=== PATIENT | male | born 1985 | race Asian ===

== ENCOUNTER 2019-11-25 19:56 | Emergency (ER) | payer OTHER ==
[~2019-11-25] VITALS: Ht 180.3 cm; Wt 85.2 kg
--- NOTE | 2019-11-25 20:47 | REPVR ---
PROCEDURE INFORMATION: Exam: CT Abdomen And Pelvis Without Contrast Exam date and time: 11/25/2019 8:26 PM Age: 34 years old Clinical indication: Pain; Other: Back; Additional info: Hematuria/back pain TECHNIQUE: Imaging protocol: Computed tomography of the abdomen and pelvis without contrast. Radiation optimization: All CT scans at this facility use at least one of these dose optimization techniques: automated exposure control; mA and/or kV adjustment per patient size (includes targeted exams where dose is matched to clinical indication); or iterative reconstruction. COMPARISON: No relevant prior studies available. FINDINGS: Liver: Normal. No mass. Gallbladder and bile ducts: The gallbladder is incompletely distended. This is most likely related to incomplete fasting. Clinical correlation to exclude gallbladder pathology suggested. Pancreas: Normal. No ductal dilation. Spleen: Normal. No splenomegaly. Adrenals: Normal. No mass. Kidneys and ureters: Linear 4 mm calcific density demonstrated in the region of the distal left ureter although the left ureter is not clearly visualized on this unenhanced evaluation. If there is a strong index of suspicion for a distal ureteral calculus on the left further evaluation with CT urography suggested. Notably, there is no significant proximal hydroureteronephrosis. Stomach and bowel: There is increased feces throughout the colon consistent with constipation. Mixed air in secretions demonstrated in nondilated small bowel. Findings suggestive of small bowel stasis. Duodenal hernia. Appendix: No evidence of appendicitis. Intraperitoneal space: Unremarkable. No free air. No significant fluid collection. Vasculature: Unremarkable. No abdominal aortic aneurysm. Lymph nodes: Unremarkable. No enlarged lymph nodes. Bladder: Unremarkable as visualized. Reproductive: The prostate gland demonstrates mild hyperplasia. Bones/joints: Unremarkable. No acute fracture. Soft tissues: Unremarkable. IMPRESSION: 1. The gallbladder is incompletely distended. This is most likely related to incomplete fasting. Clinical correlation to exclude gallbladder pathology suggested. 2. Mild prostatic hyperplasia. 3. Linear 4 mm calcific density demonstrated in the region of the distal left ureter although the left ureter is not clearly visualized on this unenhanced evaluation. If there is a strong index of suspicion for a distal ureteral calculus on the left further evaluation with CT urography suggested. Notably, there is no significant proximal hydroureteronephrosis. 4. There is increased feces throughout the colon consistent with constipation. 5. Mixed air in secretions demonstrated in nondilated small bowel. Findings suggestive of small bowel stasis. Electronically signed by: Shekhar Claudio On 11/25/2019 20:46:12 PM
[2019-11-25 20:53] LABS: BASO % 0.2 % (0.0-1.0); EOS % 0.1 % (0.0-3.0); HEMATOCRIT 43.3 % (42.0-52.0); HEMOGLOBIN 13.9 g/dl (13.5-17.5); LYMPH # 2.2 10^3/uL (1.5-5.0); LYMPH % 14.1 % (24.0-44.0); MEAN CORPUSCULAR HEMOGLOBIN 29.3 pg (27.0-33.0); MEAN CORPUSCULAR HGB CONC 32.1 g/dl (32.0-36.5); MEAN CORPUSCULAR VOLUME 91.2 fl (80.0-96.0); MONO # 0.9 10^3/uL (0.0-0.8); MONO % 5.6 % (0.0-5.0); NEUTROPHILS # 12.3 10^3/uL (1.5-8.5); NEUTROPHILS % 79.6 % (36.0-66.0); PLATELET COUNT, AUTOMATED 148 10^3/uL (150-450); RED BLOOD COUNT 4.75 10^6/uL (4.30-6.10); WHITE BLOOD COUNT 15.4 10^3/uL (4.0-10.0)
[2019-11-25] MEDS ORDERED: MIRA3350 PO (21:03)
[2019-11-25] MEDS ORDERED: FLOM0.4C39 PO (21:03)
[2019-11-25] MEDS ORDERED: CIPR-249 PO (21:03)
[2019-11-25] MEDS ORDERED: TAMSULOSIN 0.4 MG CAP PO ONE (21:15)
[2019-11-25] MEDS ORDERED: CIPROFLOXACIN 500 MG TAB PO ONE (21:15)
[2019-11-25 21:21] VITALS: BP 139/85
== END 2019-11-25 21:23 | disposition home or self-care (01) ==
LOC: M ED 19:56
DX: N20.1 Calculus of ureter (principal); N39.0 Urinary tract infection, site not specified; N40.0 Benign prostatic hyperplasia without lower urinary tract symptoms; K59.00 Constipation, unspecified; Z79.899 Other long term (current) drug therapy

== ENCOUNTER → 2019-12-10 | Outpatient (REF) | payer OTHER ==
[~2019-12-10] MED LIST: CIPR-249 PO; FLOM0.4C39 PO; MIRA3350 PO
[2019-12-10 18:32] LABS: APPEARANCE, URINE CLEAR (CLEAR); BACTERIA, URINE AUTO NEGATIVE (NEGATIVE); BILIRUBIN, URINE AUTO NEGATIVE (NEGATIVE); BLOOD, URINE BLOOD NEGATIVE (NEGATIVE); COLOR, URINE STRAW (YELLOW); GLUCOSE, URINE (UA) AUTO NEGATIVE (NEGATIVE); KETONE, URINE AUTO NEGATIVE (NEGATIVE); LEUKOCYTE ESTERASE, URINE AUTO NEGATIVE (NEGATIVE); NITRITE, URINE AUTO NEGATIVE (NEGATIVE); PROTEIN, URINE AUTO NEGATIVE (NEGATIVE); RBC, URINE AUTO 0 /HPF (0-3); SPECIFIC GRAVITY URINE AUTO 1.004 (1.002-1.035); SQUAMOUS EPITHELIAL CELL UR AU 0 /HPF (0-6); UROBILINOGEN, URINE AUTO 0.2 mg/dL (0.0-2.0); WBC, URINE AUTO 0 /HPF (0-3)
== END ==
LOC: M SMT 16:49
PROVIDERS: ATTEND Nurse Practitioner Family
DX: N39.0 Urinary tract infection, site not specified (principal)
CPT/HCPCS: 81001; 87086; G0463

== ENCOUNTER → 2019-12-11 | Outpatient (CLI) | payer OTHER ==
[~2019-12-11] MED LIST changes: +ISOVUE-370 76% 100ML VIAL (Q9967) As Ordered ONE
--- NOTE | 2019-12-11 17:01 | REP ---
CT of the abdomen and pelvis with IV scanning for ureteral calculus. Evaluation, multiphase scanning: Comparison is the abdomen and pelvis CT without IV contrast dated 11/25/2019. There is a 5 ml calculus posterolateral to the bladder on the left, similar to the comparison CT. After IV contrast, reviewing the delayed images allowing for ureteral opacification, this calculus is again identified and is not within the distal left ureter. It is 1 cm inferior to the distal tip of the left ureter. There is likely a phlebolith. There are no other renal or ureteral calculi. There is no hydronephrosis/hydroureter. The visualized lung saenz are unremarkable. The the hepatic parenchyma, gallbladder, pancreas and spleen are unremarkable except that the gallbladder is collapsed. The adrenals, kidneys and abdominal aorta are unremarkable. The bowel and mesentery are unremarkable. Pelvis: There is an appendicolith. The appendix is otherwise unremarkable. There is no ascites or adenopathy. There is a calculus posterolateral to the bladder on the left, likely a phlebolith as discussed above. The pelvic bowel loops are unremarkable. Impression: The previously identified calculus posterolateral to the bladder on the left is a phlebolith. It is not within the distal left ureter as discussed in the body of the report. There are no other renal collecting system calculi on the right on the left. Electronically Signed by Jono Wise MD 12/11/2019 04:52 P
== END ==
LOC: M RAD 14:55
PROVIDERS: ATTEND Nurse Practitioner Family
DX: N20.0 Calculus of kidney (principal)